=== PATIENT | female | born 1995 | race Caucasian/White ===

== ENCOUNTER 2023-06-14 21:42 | Emergency (ER) | payer MEDICAID ==
[~2023-06-14] VITALS: Ht 157.5 cm; Wt 54.4 kg
[2023-06-14 21:48] VITALS: BP_SYST 108; PULSE 107; RESP 18; TEMP 98.8; O2SAT 100
[2023-06-14] MEDS ORDERED: NACL 0.9% 1,000 ML IV ONE (23:15)
[2023-06-14 23:16] LABS: BILIRUBIN,URINE NEGATIVE (NEGATIVE); BLOOD, URINE NEGATIVE (NEGATIVE); CLARITY/URINE CLEAR (CLEAR); COLOR,URINE YELLOW (YELLOW); GLUCOSE,URINE NEGATIVE (NEGATIVE); KETONES,URINE NEGATIVE (NEGATIVE); LEUKOCYTE ESTERASE ,URINE NEGATIVE (NEGATIVE); NITRITE, URINE NEGATIVE (NEGATIVE); PROTEIN URINE NEGATIVE (NEGATIVE); UROBILINOGEN,URINE 0.2 (0.2-1.0)
[2023-06-15] MEDS ORDERED: DOXY1TAB3 PO (00:08)
[2023-06-15 00:20] VITALS: BP_SYST 103; PULSE 99; RESP 18; TEMP 98; O2SAT 99
== END 2023-06-15 00:20 | disposition home or self-care (01) ==
LOC: SED 21:42
DX: E86.0 Dehydration (principal); R11.0 Nausea; R68.83 Chills (without fever); Z79.899 Other long term (current) drug therapy
CPT/HCPCS: 99283; 96360; 81025; 81003; J7030